=== PATIENT | male | born 1985 | race Caucasian/White ===

== ENCOUNTER 2017-09-27 09:23 | Emergency (ER) | payer SELFPAY ==
[2017-09-27 11:08] VITALS: BP 136/80
[2017-09-27] MEDS ORDERED: BSS OPTH.SOL* BTL ONE (11:12)
[2017-09-27] MEDS ORDERED: Fluorescein Sod TOPICAL 0.6* 0.6 MG TEST OPHTHALMIC ONE (11:12)
[2017-09-27] MEDS ORDERED: Tetracaine 0.5% OPTH.SOL 4 ML* 1 DROP BTL ONE (11:12)
[2017-09-27] MEDS ORDERED: BSS OPTH.SOL* BTL OPHTHALMIC ONE (11:15)
[2017-09-27] MEDS ORDERED: Fluorescein Sodium TOPICAL* 1 MG TEST OPHTHALMIC ONE (11:16)
[2017-09-27] MEDS ORDERED: Tetracaine 0.5% OPTH.SOL 4 ML* 1 DROP BTL LEFT EYE ONE (11:22)
--- NOTE | 2017-09-27 11:54 | UC ---
Eye Complaint HPI - HPI Summary HPI Summary: got a piece of metal in right eye 2 days ago while working on his car--last tetanus was 4 years ago - History of Current Complaint Chief Complaint: UCEye Stated Complaint: LEFT EYE COMPLAINT Time Seen by Provider: 09/27/17 10:55 Hx Obtained From: Patient Onset/Duration: Sudden Onset, Lasting Days - 2, Still Present Timing: Constant Severity Initially: Moderate Severity Currently: Moderate Pain Intensity: 6 Pain Scale Used: 0-10 Numeric Location of Injury: Other - fb at 9:00 on the cornea Character: Throbbing, Foreign Body Sensation Aggravating Factor(s): Light Alleviating Factor(s): Nothing Associated Signs And Symptoms: Positive: Drainage (Clear) - left - Allergies/Home Medications Allergies/Adverse Reactions: Allergies Allergy/AdvReac Type Severity Reaction Status Date / Time codeine Allergy Hives Verified 09/27/17 11:09 PMH/Surg Hx/FS Hx/Imm Hx Previously Healthy: Yes - Surgical History Surgical History: Yes Surgery Procedure, Year, and Place: hiatal hernai repair 2009 - Family History Known Family History: Positive: Hypertension - Social History Occupation: Unemployed Lives: With Family Alcohol Use: None Substance Use Type: Marijuana Smoking Status (MU): Heavy Every Day Tobacco Smoker - Immunization History Most Recent Tetanus Shot: 2013 Hx Tetanus, Diphtheria Vaccination: Yes Vaccination Up to Date: Yes Review of Systems Constitutional: Negative Skin: Negative Eyes: Drainage - clear left eye, Eye Redness - left eye ENT: Negative Respiratory: Negative Cardiovascular: Negative Gastrointestinal: Negative Genitourinary: Negative Motor: Negative Neurovascular: Negative Musculoskeletal: Negative Neurological: Negative Psychological: Negative Is Patient Immunocompromised?: No All Other Systems Reviewed And Are Negative: Yes Physical Exam Triage Information Reviewed: Yes Appearance: Well-Appearing, No Pain Distress, Well-Nourished Vital Signs: Initial Vital Signs Temp 98.9 F 09/27/17 11:03 Pulse 73 09/27/17 11:03 Resp 12 09/27/17 11:03 BP 136/80 09/27/17 11:03 Pulse Ox 98 09/27/17 11:03 Vital Signs Reviewed: Yes Eye Exam: Normal Eyes: Positive: Conjunctiva Inflamed - left, Discharge - clear left, Other: - fb visualized at 9:00 on cornea ENT Exam: Normal ENT: Positive: Normal ENT inspection, Hearing grossly normal. Negative: Trismus , Muffled voice, Hoarse voice, Dental tenderness, Sinus tenderness Dental Exam: Normal Neck exam: Normal Neck: Positive: Supple, Nontender Respiratory Exam: Normal Respiratory: Positive: Chest non-tender, No respiratory distress, No accessory muscle use Cardiovascular Exam: Normal Cardiovascular: Positive: RRR, Pulses Normal, Brisk Capillary Refill Musculoskeletal Exam: Normal Musculoskeletal: Positive: Strength Intact, ROM Intact, No Edema Neurological Exam: Normal Neurological: Positive: Alert, Muscle Tone Normal Psychological Exam: Normal Skin Exam: Normal Re-Evaluation - Re-Evaluation First Eval Change: Improved - eye numbed with tetracaine, and fb removed with 18 guage needle---rust ring remains----eye stained no further abrasions or fb noted-- will be put on Cipro drops and follow up with Dr. Pepper Eye Complaint Course/Dx - Course Course Of Treatment: Cipro drops, follow with Dr. Pepper on Friday, tylenol/ ibuprofen for pain - Differential Dx/Diagnosis Provider Diagnoses: FB left eye removed Discharge - Discharge Plan Condition: Stable Disposition: HOME Prescriptions: Ciprofloxacin 0.3% OPTH.SHAHZAD* [Cipro 0.3% Opth*] 2 drop LEFT EYE Q2H #1 btl Patient Education Materials: Ibuprofen (By mouth), How to Use Eye Drops (ED), Eye Foreign Body (ED) Referrals: James Pepper MD [Medical Doctor] - 2 Days ()
== END 2017-09-27 11:53 | disposition home or self-care (01) ==
LOC: UCCORT 09:23
DX: T15.92XA Foreign body on external eye, part unspecified, left eye, initial encounter (principal); F17.210 Nicotine dependence, cigarettes, uncomplicated
CPT/HCPCS: 65220; 99212; A9270-GY; G0463

== ENCOUNTER 2018-05-13 10:21 | Emergency (ER) | payer OTHER ==
[2018-05-13] MEDS ORDERED: Tetracaine 0.5% OPTH.SOL 4 ML* 1 DROP BTL RIGHT EYE ONE (12:27)
[2018-05-13] MEDS ORDERED: Fluorescein Sod TOPICAL 0.6* 0.6 MG TEST OPHTHALMIC ONE (12:28)
[2018-05-13 12:34] VITALS: BP 112/66
[2018-05-13] MEDS ORDERED: BSS OPTH.SOL* BTL OPHTHALMIC ONE ×3 (12:48→13:11)
--- NOTE | 2018-05-13 12:57 | UC ---
Eye Complaint HPI - HPI Summary HPI Summary: 32-year-old male comes in to clinic with a complaint of right eye pain. He woke up yesterday morning feeling like something in his eye. He does work in construction. Somebody was grinding metal next to him the day before yesterday. He did not feel any eye trauma the day before yesterday. He does not wear contacts. No change in vision. The pain decreased yesterday but then returned today. He feels irritation most we to the lateral aspect of the right eye. No upper respiratory tract infection symptoms. The light bothers the eye. He being his eyes closed decreases the discomfort. - History of Current Complaint Chief Complaint: UCEye Stated Complaint: RIGHT EYE CONCERN (POSS METAL IN EYE) Time Seen by Provider: 05/13/18 12:26 Pain Intensity: 4 - Allergies/Home Medications Allergies/Adverse Reactions: Allergies Allergy/AdvReac Type Severity Reaction Status Date / Time codeine Allergy Hives Verified 05/13/18 12:25 PMH/Surg Hx/FS Hx/Imm Hx Previously Healthy: Yes - Surgical History Surgical History: Yes Surgery Procedure, Year, and Place: hiatal hernai repair 2009 - Family History Known Family History: Positive: Hypertension - Social History Alcohol Use: None Substance Use Type: None Smoking Status (MU): Heavy Every Day Tobacco Smoker Type: Cigarettes Amount Used/How Often: 1/2 PPD - Immunization History Most Recent Tetanus Shot: 2013 Hx Tetanus, Diphtheria Vaccination: Yes Vaccination Up to Date: Yes Review of Systems Constitutional: Negative Skin: Negative Eyes: Other - SEE HPI ENT: Negative Respiratory: Negative Cardiovascular: Negative Gastrointestinal: Negative Motor: Negative Neurovascular: Negative Musculoskeletal: Negative Neurological: Negative Psychological: Negative Is Patient Immunocompromised?: No All Other Systems Reviewed And Are Negative: Yes Physical Exam Triage Information Reviewed: Yes Appearance: Well-Appearing, Well-Nourished, Pain Distress - MILD Vital Signs: Initial Vital Signs Temp 98 F 05/13/18 12:25 Pulse 74 05/13/18 12:25 Resp 15 05/13/18 12:25 BP 112/66 05/13/18 12:25 Pulse Ox 100 05/13/18 12:25 Vital Signs Reviewed: Yes Eyes: Positive: Other: - The right eye was examined after numbing it with tetracaine drops. Fluorescein stain was applied. There was a fluorescein stain uptake of 1 mm brown object to the right of his pupil. There is no hyphema pupil is reacting normally. ENT: Positive: Normal ENT inspection Neck exam: Normal Neck: Positive: Supple Respiratory: Positive: No respiratory distress Musculoskeletal Exam: Normal Musculoskeletal: Positive: Strength Intact, ROM Intact Neurological Exam: Normal Neurological: Positive: Alert Psychological Exam: Normal Psychological: Positive: Normal Response To Family, Age Appropriate Behavior Skin Exam: Normal Procedures - Eye Procedure Right Alcaine Drops Administered: Yes Eye FB Removal: removal w/ needle - 1 mm brown foreign body was loosened with a #18-gauge needle. Eye Complaint Course/Dx - Course Course Of Treatment: I was able to remove the 1 mm brown foreign body from the surface of the eye with a #18-gauge needle. After was loosened I reexamined the patient and could not find the foreign body anywhere in the eye. It gave him saline drops to flush his eye. The prescribe him tobramycin eyedrops. He should get rechecked and I doctor if he does not improve or gets worse. - Differential Dx/Diagnosis Provider Diagnoses: RIGHT EYE FOREIGN BODY Discharge - Sign-Out/Discharge Documenting (check all that apply): Patient Departure All imaging exams completed and their final reports reviewed: No Studies - Discharge Plan Condition: Stable Disposition: HOME Prescriptions: Tobramycin 0.3% OPHTH.SHAHZAD* 1 drop RIGHT EYE Q4H #1 btl Patient Education Materials: Eye Foreign Body (ED) Referrals: Edgar Robles MD [Primary Care Provider] - Additional Instructions: FOLLOW UP WITH OPHTHALMOLOGY IF NOT COMPLETELY IMPROVED. GET RECHECKED FOR ANY WORSENING OF YOUR CONDITION OR QUESTIONS OR CONCERNS. - Billing Disposition and Condition Condition: STABLE Disposition: Home
== END 2018-05-13 13:40 | disposition home or self-care (01) ==
LOC: UCCORT 10:21
DX: T15.11XA Foreign body in conjunctival sac, right eye, initial encounter (principal); X58.XXXA Exposure to other specified factors, initial encounter; Y93.H3 Activity, building and construction; Y92.9 Unspecified place or not applicable; Y99.0 Civilian activity done for income or pay; Z88.5 Allergy status to narcotic agent; F17.210 Nicotine dependence, cigarettes, uncomplicated
CPT/HCPCS: 65205; 99213; A9270-GY; G0463